=== PATIENT | male | born 1975 | race Caucasian/White ===

== ENCOUNTER → 2023-11-02 | Outpatient (CLI) | payer BC ==
--- NOTE | 2023-11-03 13:45 | CT ---
EXAMINATION TYPE: CT sinus wo con CT DLP: 650 mGycm, Automated exposure control for dose reduction was used. DATE OF EXAM: 11/02/2023 12:29 PM COMPARISON: . CLINICAL INDICATION:Male, 48 years old with history of R43.9 UNSPECIFIED DISTURBANCES OF SMELL AND TA KARLI; , chronic sinusitis and smell problems. TECHNIQUE: Multiple thin axial images were obtained through the paranasal sinuses without the use of IV contrast. Additional coronal and sagittal reformatted images were submitted for evaluation. Contrast used: none Oral contrast used: none FINDINGS: Frontal sinuses: Left frontal sinus is normally developed and aerated. The right frontal sinus is hyp oplastic. Maxillary Sinuses: Normally developed. Mucous retention cyst and mucosal thickening are present in th e maxillary sinuses. Maxillary Infundibula([facility]): Clear, . Ethmoid sinuses: Normally developed and aerated except for very minimal mucosal thickening Sphenoid sinuses: Normally developed and aerated. Nasal septum: Within normal limits.. Nasal Turbinates: Within normal limits. Mastoid air cells & middle ears: The air cells are clear. The middle ears are grossly unremarkable. Modified Soft tissues & Brain: Partially seen without gross abnormality. Globes are intact. Other: Lamina papyracea is intact without evidence of remote orbital fracture or orbital prolapse into the e thmoid sinus. IMPRESSION: 1. Moderate maxillary sinus disease and minimal ethmoid air cell disease 2. The ostiomeatal units, frontonasal and sphenoethmoidal recesses are clear.
== END | disposition home or self-care (01) ==
LOC: RADCTMAIN 12:05
PROVIDERS: ATTEND Otolaryngology
DX: J34.89 Other specified disorders of nose and nasal sinuses (principal); J32.9 Chronic sinusitis, unspecified; R43.9 Unspecified disturbances of smell and taste
CPT/HCPCS: 70486

== ENCOUNTER → 2024-11-24 | Outpatient (CLI) | payer BC | END | disposition home or self-care (01) | LOC: RADNMMAIN 10:14 | PROVIDERS: ATTEND Family Medicine | DX: Z53.9 Procedure and treatment not carried out, unspecified reason (principal) ==